=== PATIENT | female | born 1945 | race American Indian/Alaskan Native ===

== ENCOUNTER 2017-07-08 08:29 | Inpatient (IN) | payer MEDICARE, OTHER ==
[2017-07-08 08:35] VITALS: BMI 30.4
--- NOTE | 2017-07-08 09:12 | C.PDOC ---
History Of Present Illness Patient presents to ED for amputation of left 2nd digit by Dr. Watkins. Patient has h/o recent admission for left 3rd digit gangrene/amputation due to LUE steal syndrome. PMHx of ESRD on HD, HTN, A fib, DM, CHF, PPM. Patient is NPO since last night. Time Seen by Provider: 07/08/17 08:36 Chief Complaint (Nursing): Upper Extremity Problem/Injury History Per: Patient, Other (prior records/visits) History/Exam Limitations: no limitations Onset/Duration Of Symptoms: Persistent Current Symptoms Are (Timing): Still Present Severity: Moderate Past Medical History Reviewed: Historical Data, Nursing Documentation, Vital Signs Vital Signs: Last Vital Signs Temp 98.2 F 07/08/17 11:15 Pulse 84 07/08/17 11:15 Resp 18 07/08/17 11:15 BP 148/54 L 07/08/17 11:15 Pulse Ox 100 07/08/17 11:15 - Medical History PMH: Anemia (Iron Transfusion), Arthritis, Atrial Fibrillation, CHF ((chr, lv, systolic)), CVA, Diabetes, Hiatal Hernia, HTN, Hypercholesterolemia, End Stage Renal Disease (TUES, THURS, SAT DIALYSIS), Chronic Kidney Disease (ESRD on HD TTS) Surgical History: Pacemaker Other Surgeries: left 3rd digit amputation (06/2017) - [employer] Procedures CORONAR ARTERIOGR-2 CATH (07/26/14) DETACHMENT AT LEFT MIDDLE FINGER, HIGH, OPEN APPROACH (06/03/16) HEMODIALYSIS (05/08/15) IMPACTED FECES REMOVAL (01/04/14) LEFT HEART CARDIAC CATH (07/26/14) LT HEART ANGIOCARDIOGRAM (07/26/14) PERFORMANCE OF URINARY FILTRATION, MULTIPLE (06/03/16) Family History: States: No Known Family Hx - Social History Hx Tobacco Use: No Hx Alcohol Use: No Hx Substance Use: No - Immunization History Hx Tetanus Toxoid Vaccination: Yes Hx Influenza Vaccination: Yes Hx Pneumococcal Vaccination: Yes Review Of Systems Except As Marked, All Systems Reviewed And Found Negative. Constitutional: Negative for: Fever, Chills Cardiovascular: Negative for: Chest Pain Respiratory: Negative for: Shortness of Breath Gastrointestinal: Negative for: Nausea, Vomiting, Abdominal Pain Musculoskeletal: Positive for: Other (left 2nd digit pain/wound) Physical Exam - Physical Exam Appears: Well, Non-toxic, No Acute Distress Skin: Other (see extremity exam) Head: Normacephalic Oral Mucosa: Moist Cardiovascular: Rhythm Regular, Murmur (4/6 systolic) Respiratory: Normal Breath Sounds, No Rales, No Rhonchi, No Wheezing Gastrointestinal/Abdominal: Normal Exam, Bowel Sounds, Soft, No Tenderness Back: Other (left hand - 2nd digit distal wound, digits contracted and difficult to exam, 3rd digit amputation, LIUA AV fistula with palpable thrill) Pulses: Left Radial: Normal, Right Radial: Normal Neurological/Psych: Oriented x3 ED Course And Treatment - Laboratory Results Result Diagrams: 07/08/17 09:30 07/08/17 09:30 ECG: Interpreted By Me, Viewed By Me (atrial paced rhythm 64 bpm, left axis deviation, no acute ST/T wave changes) ECG Interpretation: No Acute Changes O2 Sat by Pulse Oximetry: 100 (RA) Pulse Ox Interpretation: Normal - Radiology CXR: Interpreted by Me, Viewed By Me (cardiomegaly, no infiltrates, AICD in place) Progress Note: Preop blood work, EKG, CXR ordered and reviewed. - Physician Consult Information Physician Contacted: Woody Watkins Jr. Outcome Of Conversation: Discussed patient with Dr. Watkins, he would like patient admitted under his service for finger gangrene, for OR amputation. Disposition - Disposition Disposition: HOSPITALIZED Disposition Time: 11:09 Condition: STABLE - Clinical Impression Clinical Impression: Gangrene of finger Decision To Admit - Pt Status Changed To: Hospital Disposition Of: Inpatient - Admit Certification Admit to Inpatient:: After my assessment, the patient will require hospitalization for at least two midnights. This is because of the severity of symptoms shown, intensity of services needed, and/or the medical risk in this patient being treated as an outpatient. - InPatient: Physician Admission Certification: I certify that this patient requires 2 or more midnights of care for the following reason:: see notes - . Bed Request Type: Regular Admitting Physician: Woody Watkins Jr. Patient Diagnosis: Gangrene of finger
[2017-07-08 09:37] LABS: BASO % 0.8 % (0.0-2.0); EOS # 0.1 K/uL (0.0-0.7); EOS % 1.8 % (0.0-4.0); HEMATOCRIT 31.6 % (34.0-47.0); LYMPH # 1.2 K/uL (1.0-4.3); LYMPH % 21.2 % (20.0-40.0); MEAN CORPUSCULAR HEMOGLOBIN 27.9 pg (27.0-31.0); MEAN CORPUSCULAR HGB CONC 32.4 g/dL (33.0-37.0); MEAN PLATELET VOLUME 7.6 fL (7.2-11.7); MONO # 0.7 K/uL (0.0-0.8); MONO % 11.7 % (0.0-10.0); NRBC % 0.1 % (0.0-2.0); RED CELL DISTRIBUTION WIDTH 18.1 % (11.5-14.5); WHITE BLOOD COUNT 5.7 K/uL (4.8-10.8)
[2017-07-08 09:51] LABS: POTASSIUM 4.2 mmol/L (3.6-5.2)
[2017-07-08 09:53] LABS: ALB/GLOB RATIO 1.1 (1.0-2.1); BILIRUBIN,TOTAL 0.7 mg/dL (0.2-1.3); TOTAL PROTEIN 7.5 g/dL (6.3-8.3)
[2017-07-08] MEDS ORDERED: Bupivacaine HCl 0.25% PF (10 ml) Inj ONE (10:05)
[2017-07-08] MEDS ORDERED: Etomidate 20 mg/10ml Inj IV ONE (10:05)
--- NOTE | 2017-07-08 11:09 | RAD ---
PROCEDURE: CHEST RADIOGRAPH, 1 VIEW HISTORY: PREOP COMPARISON: Portable chest 06/03/2016. FINDINGS: LUNGS: No acute infiltrate is identified bilaterally. Bronchovascular markings somewhat overlapped posterior to the left heart medially. PLEURA: No pneumothorax or pleural fluid seen. CARDIOVASCULAR: Cardiomegaly appears stable. No acute pulmonary venous congestion. Pacemaker/ implanted defibrillator is again appreciated in place without change. OSSEOUS STRUCTURES: No significant abnormalities. VISUALIZED UPPER ABDOMEN: Normal. OTHER FINDINGS: None. IMPRESSION: Stable cardiomegaly. No acute infiltrate or pleural effusion identified.
[2017-07-08] MEDS ORDERED: Lactated Ringer's 1,000 ML IV ONE (11:42)
[2017-07-08] MEDS ORDERED: Midazolam 2 MG/2 ML VIAL ONE (11:49)
[2017-07-08] MEDS ORDERED: HYDROmorphone 0.5 mg/0.5 ml ISec IVP PRN (12:26)
--- NOTE | 2017-07-08 12:32 | PCM.SURG1 ---
Surgeon's Initial Post Op Note - Surgeon's Notes Surgeon: Dr. Brandon Electronic Plotting System Operator: Mukesh Garcia PGY2 Type of Anesthesia: IV Sedation, Local Pre-Operative Diagnosis: Left 2nd digit ulcer Operative Findings: Same Post-Operative Diagnosis: Same Operation Performed: Amputation 2nd digit L Specimen/Specimens Removed: 2nd digit L hand Estimated Blood Loss: EBL {In ML}: 5 Blood Products Given: N/A Drains Used: No Drains Post-Op Condition: Good Date of Surgery/Procedure: 07/08/17 Time of Surgery/Procedure: 12:32
[2017-07-08] MEDS ORDERED: Oxycodone/Acetaminophen 5/325 mg Tab PO PRN (12:36)
[2017-07-08] MEDS ORDERED: ceFAZolin IV 2 gm in Dextrose 1 GM/50 ML BAG IVPB ONE (13:13)
[2017-07-08] MEDS ORDERED: Bupivacaine HCl 0.5% PF (10 ml) Inj ONE (13:14)
[2017-07-08] MEDS ORDERED: Lidocaine 1% Inj (20ml) ONE (13:14)
--- NOTE | 2017-07-08 14:26 | OP ---
PROCEDURE DATE: 07/08/2017 PREOPERATIVE DIAGNOSIS: Ischemic ulcer of left index finger, contracted hand status post DRIL procedure. PROCEDURE CARRIED OUT: Amputation transphalangeal of left index finger and trimming of nails. SURGEON: Dr. Brandon. LITHOGRAPH PRESS FEEDER: Dr. Garcia. ANESTHESIA ADMINISTERED BY: Dr. Lam. INDICATIONS: The patient is an elderly woman on dialysis who previously had a DRIL procedure and the woman has chronically ischemic contracted hand. OPERATIVE FINDINGS: There was adequate vascularity from the tissues cut. Procedure is done using a local block as well as intravenous sedation. DESCRIPTION OF PROCEDURE: The patient was given local anesthesia by infiltration as well as intravenous sedation. Circular incision was made around the proximal phalanx. This was divided. The bone was cut in the higher level. Skin was advanced and closed on top of this. The wound was then closed. Procedure is terminated. There is no pus. There was some arthritic type drainage from the wound initially from the tendons. Other than this, no unusual findings. We also trimmed her nails, which are pressing into the palm. Woody Brandon Jr., MD
[2017-07-08] MEDS: HYDROmorphone 0.5 mg/0.5 ml ISec IVP PRN (19:09)
[2017-07-09] MEDS: HYDROmorphone 0.5 mg/0.5 ml ISec IVP PRN ×2 (02:37→11:08)
--- NOTE | 2017-07-09 11:37 | CP.PCM.DIS ---
Provider - Provider Date of Admission: 07/08/17 11:09 Attending physician: Woody Brandon Jr, MD Consults: Norma Time Spent in preparation of Discharge (in minutes): 45 Hospital Course - Lab Results Lab Results: Most Recent Lab Values WBC 5.7 K/uL (4.8-10.8) 07/08/17 09:30 RBC 3.67 Mil/uL (3.80-5.20) L 07/08/17 09:30 Hgb 10.2 g/dL (11.0-16.0) L 07/08/17 09:30 Hct 31.6 % (34.0-47.0) L 07/08/17 09:30 MCV 86.0 fL (81.0-99.0) D 07/08/17 09:30 MCH 27.9 pg (27.0-31.0) 07/08/17 09:30 MCHC 32.4 g/dL (33.0-37.0) L 07/08/17 09:30 RDW 18.1 % (11.5-14.5) H 07/08/17 09:30 Plt Count 141 K/uL (130-400) 07/08/17 09:30 MPV 7.6 fL (7.2-11.7) 07/08/17 09:30 Neut % (Auto) 64.5 % (50.0-75.0) 07/08/17 09:30 Lymph % (Auto) 21.2 % (20.0-40.0) 07/08/17 09:30 [place] % (Auto) 11.7 % (0.0-10.0) H 07/08/17 09:30 Eos % (Auto) 1.8 % (0.0-4.0) 07/08/17 09:30 Baso % (Auto) 0.8 % (0.0-2.0) 07/08/17 09:30 Neut # 3.7 K/uL (1.8-7.0) 07/08/17 09:30 Lymph # 1.2 K/uL (1.0-4.3) 07/08/17 09:30 [place] # 0.7 K/uL (0.0-0.8) 07/08/17 09:30 Eos # 0.1 K/uL (0.0-0.7) 07/08/17 09:30 Baso # 0.0 K/uL (0.0-0.2) 07/08/17 09:30 PT 11.7 SECONDS (9.7-12.2) 07/08/17 09:30 INR 1.0 07/08/17 09:30 APTT 31 SECONDS (21-34) 07/08/17 09:30 Sodium 144 mmol/L (132-148) 07/08/17 09:30 Potassium 4.2 mmol/L (3.6-5.2) 07/08/17 09:30 Chloride 102 mmol/L (98-107) 07/08/17 09:30 Carbon Dioxide 29 mmol/L (22-30) 07/08/17 09:30 Anion Gap 17 (10-20) 07/08/17 09:30 BUN 32 mg/dL (7-17) H 07/08/17 09:30 Creatinine 4.3 MG/DL (0.7-1.2) H 07/08/17 09:30 Est GFR ( Amer) 12 07/08/17 09:30 Est GFR (Non-Af Amer) 10 07/08/17 09:30 Random Glucose 81 mg/dL (65-105) 07/08/17 09:30 Calcium 10.0 mg/dl (8.6-10.4) 07/08/17 09:30 Total Bilirubin 0.7 mg/dL (0.2-1.3) 07/08/17 09:30 AST 33 U/L (14-36) 07/08/17 09:30 ALT 16 U/L (9-52) 07/08/17 09:30 Alkaline Phosphatase 112 U/L (38-126) 07/08/17 09:30 Total Protein 7.5 g/dL (6.3-8.3) 07/08/17 09:30 Albumin 3.9 g/dL (3.5-5.0) 07/08/17 09:30 Globulin 3.5 gm/dL (2.2-3.9) 07/08/17 09:30 Albumin/Globulin Ratio 1.1 (1.0-2.1) 07/08/17 09:30 Blood Type O POSITIVE 07/08/17 09:30 Antibody Screen Negative 07/08/17 09:30 - Hospital Course Hospital Course: Pt w PMH of ESRD on HD , DM, HTN came to [facility] for L index finger amputation. Pt tolerated it well. The following day Pain controlled. No bleeding. Pt is to get HD and go home. Denies F/C/N/V/D/CP/SOB Discharge Exam - Head Exam Head Exam: ATRAUMATIC, NORMAL INSPECTION, NORMOCEPHALIC - Eye Exam Eye Exam: EOMI, Normal appearance, PERRL Pupil Exam: NORMAL ACCOMODATION, PERRL - ENT Exam ENT Exam: Mucous Membranes Moist - Neck Exam Neck exam: Normal Inspection - Respiratory Exam Respiratory Exam: NORMAL BREATHING PATTERN - Cardiovascular Exam Cardiovascular Exam: REGULAR RHYTHM - GI/Abdominal Exam GI & Abdominal Exam: Soft. absent: Tenderness - Exam Exam: NORMAL INSPECTION - Extremities Exam Extremities exam: tenderness Additional comments: L hand dressing C/D/I. fingers contracted. 2,3 fingers amputated. L arm AVF good bruits. thrills - Psychiatric Exam Psychiatric exam: Normal Affect, Normal Mood - Skin Skin Exam: Dry, Normal Color, Warm Discharge Plan - Follow Up Plan Condition: STABLE Disposition: HOME/ ROUTINE
--- NOTE | 2017-07-09 11:41 | CP.PCM.CON ---
History of Present Illness - History of Present Illness History of Present Illness: 71 y/o female with ESRD on maintenance HD,IDDM,CHF,pace maker PVD was admitted yesterday for pain in Lt 2nd digit & underwent amputation of Lt 2nd finger this am. Pts dialysis schedule is TTS & she receives dialysis via Lt arm AVF Past Patient History - Infectious Disease Hx of Infectious Diseases: None - Tetanus Immunizations Tetanus Immunization: Unknown - Past Medical History & Family History Past Medical History?: Yes - Past Social History Smoking Status: Never Smoked - CARDIAC Hx Atrial Fibrillation: Yes Hx Congestive Heart Failure: Yes ((chr, lv, systolic)) Hx Hypercholesterolemia: Yes Hx Hypertension: Yes Hx Pacemaker: Yes - PULMONARY Hx Respiratory Disorders: No - NEUROLOGICAL HX Cerebrovascular Accident: Yes - HEENT Hx HEENT Problems: No - RENAL Hx Chronic Kidney Disease: Yes (ESRD on HD TTS) Date of Last Dialysis Treatment: 07/07/17 - ENDOCRINE/METABOLIC Hx Endocrine Disorders: Yes Hx Diabetes Mellitus Type 1: Yes (NO MED) Hx Diabetes Mellitus Type 2: Yes (NO MEDS) - HEMATOLOGICAL/ONCOLOGICAL Hx Anemia: Yes (Iron Transfusion) - INTEGUMENTARY Hx Dermatological Problems: No - MUSCULOSKELETAL/RHEUMATOLOGICAL Hx Arthritis: Yes Hx Falls: No Other/Comment: Right hand fingers contracted - GASTROINTESTINAL Hx Gastrointestinal Disorders: Yes Other/Comment: hiatal hernia - GENITOURINARY/GYNECOLOGICAL Hx Genitourinary Disorders: No - PSYCHIATRIC Hx Substance Use: No - SURGICAL HISTORY Hx Surgeries: Yes Other/Comment: AV Shunt,. PACEMAKER. L 3rd digit amputation. Lue 2nd digit amputation 07/08/17 - ANESTHESIA Hx Anesthesia: Yes Hx Anesthesia Reactions: No Meds Allergies/Adverse Reactions: Allergies Allergy/AdvReac Type Severity Reaction Status Date / Time No Known Allergies Allergy Verified 07/08/17 08:39 - Medications Medications: Current Medications Amiodarone HCl (Cordarone) 200 mg PO TID [facility] Last Admin: 07/09/17 11:12 Dose: Not Given Amlodipine Besylate (Norvasc) 10 mg PO DAILY [facility] Last Admin: 07/09/17 11:13 Dose: Not Given Aspirin (Ecotrin) 81 mg PO DAILY [facility] Last Admin: 07/09/17 11:13 Dose: 81 mg Hydralazine HCl (Apresoline) 25 mg PO QID [facility] Last Admin: 07/09/17 11:12 Dose: Not Given Hydromorphone HCl (Dilaudid) 0.3 mg IVP Q10M PRN PRN Reason: Pain, moderate (4-7) Last Admin: 07/08/17 12:56 Dose: 0.3 mg Hydromorphone HCl (Dilaudid) 0.5 mg IVP Q4H PRN PRN Reason: Pain, severe (8-10) Last Admin: 07/09/17 11:08 Dose: 0.5 mg Oxycodone/Acetaminophen (Percocet 5/325 Mg Tab) 2 tab PO Q4H PRN PRN Reason: Pain, moderate (4-7) Stop: 07/11/17 12:37 Pantoprazole Sodium (Protonix Inj) 40 mg IVP DAILY [facility] Last Admin: 07/09/17 11:12 Dose: 40 mg Results - Vital Signs Recent Vital Signs: Last Vital Signs Temp 997.8 F H 07/09/17 09:58 Pulse 68 07/09/17 09:58 Resp 20 07/09/17 09:58 BP 127/68 07/09/17 09:58 Pulse Ox 96 07/09/17 09:58 - Labs Result Diagrams: 07/08/17 09:30 07/08/17 09:30
--- NOTE | 2017-07-09 11:48 | CP.PCM.CON ---
History of Present Illness - History of Present Illness History of Present Illness: 71 y/o female with ESRD on HD TTS via Lt arm AVF was admitted last pm for c/o pain in Lt 2nd digit This morning Pt underwent amputation of Lt 2nd finger sec to steal syndrome. PMH is also significant for CHF,PPM,IDDM,PVD. Today Pt denies SOB or chest pain Past Patient History - Infectious Disease Hx of Infectious Diseases: None - Tetanus Immunizations Tetanus Immunization: Unknown - Past Medical History & Family History Past Medical History?: Yes - Past Social History Smoking Status: Never Smoked - CARDIAC Hx Atrial Fibrillation: Yes Hx Congestive Heart Failure: Yes ((chr, lv, systolic)) Hx Hypercholesterolemia: Yes Hx Hypertension: Yes Hx Pacemaker: Yes - PULMONARY Hx Respiratory Disorders: No - NEUROLOGICAL HX Cerebrovascular Accident: Yes - HEENT Hx HEENT Problems: No - RENAL Hx Chronic Kidney Disease: Yes (ESRD on HD TTS) Type of Dialysis Access: Lt AVF Date of Last Dialysis Treatment: 07/07/17 - ENDOCRINE/METABOLIC Hx Endocrine Disorders: Yes Hx Diabetes Mellitus Type 1: Yes (NO MED) Hx Diabetes Mellitus Type 2: Yes (NO MEDS) - HEMATOLOGICAL/ONCOLOGICAL Hx Anemia: Yes (Iron Transfusion) - INTEGUMENTARY Hx Dermatological Problems: No - MUSCULOSKELETAL/RHEUMATOLOGICAL Hx Arthritis: Yes Hx Falls: No Other/Comment: Right hand fingers contracted - GASTROINTESTINAL Hx Gastrointestinal Disorders: Yes Other/Comment: hiatal hernia - GENITOURINARY/GYNECOLOGICAL Hx Genitourinary Disorders: No - PSYCHIATRIC Hx Substance Use: No - SURGICAL HISTORY Hx Surgeries: Yes Other/Comment: AV Shunt,. PACEMAKER. L 3rd digit amputation. Lue 2nd digit amputation 07/08/17 - ANESTHESIA Hx Anesthesia: Yes Hx Anesthesia Reactions: No Meds Allergies/Adverse Reactions: Allergies Allergy/AdvReac Type Severity Reaction Status Date / Time No Known Allergies Allergy Verified 07/08/17 08:39 - Medications Medications: Current Medications Amiodarone HCl (Cordarone) 200 mg PO TID [facility] Last Admin: 07/09/17 11:12 Dose: Not Given Amlodipine Besylate (Norvasc) 10 mg PO DAILY [facility] Last Admin: 07/09/17 11:13 Dose: Not Given Aspirin (Ecotrin) 81 mg PO DAILY [facility] Last Admin: 07/09/17 11:13 Dose: 81 mg Hydralazine HCl (Apresoline) 25 mg PO QID [facility] Last Admin: 07/09/17 11:12 Dose: Not Given Hydromorphone HCl (Dilaudid) 0.3 mg IVP Q10M PRN PRN Reason: Pain, moderate (4-7) Last Admin: 07/08/17 12:56 Dose: 0.3 mg Hydromorphone HCl (Dilaudid) 0.5 mg IVP Q4H PRN PRN Reason: Pain, severe (8-10) Last Admin: 07/09/17 11:08 Dose: 0.5 mg Oxycodone/Acetaminophen (Percocet 5/325 Mg Tab) 2 tab PO Q4H PRN PRN Reason: Pain, moderate (4-7) Stop: 07/11/17 12:37 Pantoprazole Sodium (Protonix Inj) 40 mg IVP DAILY [facility] Last Admin: 07/09/17 11:12 Dose: 40 mg Physical Exam - Constitutional Appears: No Acute Distress - Head Exam Head Exam: ATRAUMATIC, NORMOCEPHALIC Additional comments: No icterus - Eye Exam Eye Exam: Normal appearance - Respiratory Exam Additional comments: Lungs clear - Cardiovascular Exam Cardiovascular Exam: REGULAR RHYTHM - GI/Abdominal Exam GI & Abdominal Exam: Soft Additional comments: Nontender - Extremities Exam Additional comments: Lt hand dressed No pedal edema Results - Vital Signs Recent Vital Signs: Last Vital Signs Temp 997.8 F H 07/09/17 09:58 Pulse 68 07/09/17 09:58 Resp 20 07/09/17 09:58 BP 127/68 07/09/17 09:58 Pulse Ox 96 07/09/17 09:58 - Labs Result Diagrams: 07/08/17 09:30 07/08/17 09:30 Assessment & Plan - Assessment and Plan (Free Text) Assessment: ESRD on HD S/P amputation of Lt 2nd finger Hx/o CHF,PPM IDDM Plan: HD is scheduled for today BP controlled Labs stable
[2017-07-09 15:38] VITALS: RESP 16
[2017-07-09 15:40] VITALS: O2SAT 98
--- NOTE | 2017-07-09 17:38 | CARD ---
APPROVED REPORT EKG Measurement Heart [id number] <Conclusion> Atrial-sensed ventricular-paced rhythm with prolonged AV conduction Abnormal ECG
[2017-07-09 18:04] VITALS: BP 152/66
[2017-07-09 18:06] VITALS: PULSE 82; TEMP 98.5
== END 2017-07-09 22:05 | disposition home or self-care (01) | DRG 255 ==
LOC: C.ER 08:29 → C.9E 11:09 → C.3T 15:50
PROVIDERS: ADMIT Surgery Vascular Surgery; ATTEND Surgery Vascular Surgery
PROC: 5A1D00Z (ICD-10-PCS; 2017-07-08)
PROC: 0X6P0Z1 Detachment at Left Index Finger, High, Open Approach (ICD-10-PCS; principal; 2017-07-08 12:00)
DX: E10.52 Type 1 diabetes mellitus with diabetic peripheral angiopathy with gangrene (principal); N18.6 End stage renal disease; I13.2 Hypertensive heart and chronic kidney disease with heart failure and with stage 5 chronic kidney disease, or end stage renal disease; E10.22 Type 1 diabetes mellitus with diabetic chronic kidney disease; I50.22 Chronic systolic (congestive) heart failure; L98.499 Non-pressure chronic ulcer of skin of other sites with unspecified severity; I48.91 Unspecified atrial fibrillation; E10.622 Type 1 diabetes mellitus with other skin ulcer; M24.541 Contracture, right hand; D64.9 Anemia, unspecified; M21.831 Other specified acquired deformities of right forearm; E78.00 Pure hypercholesterolemia, unspecified; Z79.4 Long term (current) use of insulin; Z86.73 Personal history of transient ischemic attack (TIA), and cerebral infarction without residual deficits; Z95.0 Presence of cardiac pacemaker